=== PATIENT | male | born 1975 | race Caucasian/White ===

== ENCOUNTER 2016-02-29 14:23 | Emergency (ER) | payer SELFPAY ==
[2016-02-29 14:30] VITALS: RESP 18
[2016-02-29] MEDS ORDERED: NAPROXEN 250 MG TAB PO STA (14:41)
--- NOTE | 2016-02-29 14:46 | ED ---
Fall HPI - General Chief Complaint: Fall Stated Complaint: Fall. Neck Pain Time Seen by Provider: 02/29/16 14:33 Source: patient Mode of arrival: ambulatory - History of Present Illness Initial Comments: This is a 40-year-old male who presents emergency department because he fell yesterday. The patient states he was doing his laundry and trying to get into his house when he slipped on some ice and fell onto his right side. He states that he injured his right hip and hit his head on the ground. He states he did not lose consciousness. He is able to get up and ambulate afterwards. He went to sleep and when he woke up this morning he had some neck discomfort bilaterally and laterally. He states that it's worse with moving his neck. He denies any numbness, tingling, or weakness in his extremities. He denies any headache, nausea, vomiting, or visual changes. No blood thinners. He also admits to some lateral right hip pain that is worse with palpation and hip flexion. Again no weakness or numbness in the distal extremities. He called his employer today who advised him to the emergency department and is here for evaluation and work note. - Related Data Home Medications Medication Instructions Recorded Confirmed ALPRAZolam [Xanax] 1 mg PO Q8H PRN 02/29/16 02/29/16 HYDROcodone/APAP 5-325MG [[place] 1 tab PO Q8H PRN 02/29/16 02/29/16 5-325] Previous Rx's Medication Instructions Recorded Methocarbamol [Robaxin] 1,000 mg PO TID #20 tab 02/29/16 Naproxen [Naprosyn] 500 mg PO Q12HR #30 tab 02/29/16 Allergies Allergy/AdvReac Type Severity Reaction Status Date / Time No Known Allergies Allergy Verified 02/29/16 14:36 Review of Systems ROS Statement: Those systems with pertinent positive or pertinent negative responses have been documented in the HPI. ROS Other: All systems not noted in ROS Statement are negative. Past Medical History Past Medical History: No Reported History History of Any Multi-Drug Resistant Organisms: None Reported Past Surgical History: No Surgical Hx Reported Past Psychological History: No Psychological Hx Reported Smoking Status: Current every day smoker Past Alcohol Use History: None Reported Past Drug Use History: None Reported General Exam - General Exam Comments Initial Comments: Constitutional: Awake alert Appears comfortable Head: Normocephalic atraumatic Eyes: no conjunctival injection No scleral icterus EOMI Neck: No JVD Supple, there is bilateral muscular tenderness in the lower neck. No spinous process tenderness. Heart: Regular rate rhythm normal S1-S2 no murmurs Lungs: Clear to auscultation bilaterally No wheezing No rales Abdomen: Soft nondistended nontender Extremities: Non edematous DP pulses intact Radial pulses intact, there is tenderness to palpation over the greater tuberosity of the right hip. No ecchymosis Neuro: A&Ox3 cranial nerves II through XII are grossly intact, 5 out of 5 strength in upper and lower extremities bilaterally, sensation intact to light touch in all extremities. No ataxia. Psych: Appropriate mood and affect Limitations: no limitations Course Vital Signs 02/29/16 14:27 Temperature 97.3 F L Pulse Rate 97 Respiratory 18 Rate Blood Pressure 115/73 O2 Sat by Pulse 99 Oximetry Medical Decision Making - Medical Decision Making This is a 40-year-old male who presents emergency Department after a fall yesterday. The patient had x-rays of his neck and hip which were unremarkable for fracture. The patient likely suffered a neck strain and hip contusion. He can be sent home on Naprosyn and Robaxin as needed. I'm going to give the next couple of days off work. The patient has no indication for CT scanning of his brain including no anticoagulation. Patient did not lose consciousness. He has no headache. No nausea or vomiting. At this time I told to keep an eye symptoms if he has any worsening or changing symptoms she can return emergency Department. All questions were answered. Disposition Clinical Impression: Neck strain, Contusion, hip Disposition: HOME SELF-CARE Condition: Stable Instructions: Cervical Strain (ED) Prescriptions: Methocarbamol [Robaxin] 1,000 mg PO TID #20 tab Naproxen [Naprosyn] 500 mg PO Q12HR #30 tab Referrals: Malcom Fritz MD [Primary Care Provider] - 1-2 days
--- NOTE | 2016-02-29 15:46 | XR ---
EXAMINATION TYPE: XR Hip RT and AP Pelvis DATE OF EXAM: 02/29/2016 3:28 PM COMPARISON: NONE HISTORY: Trauma and pain TECHNIQUE: A single AP view of the pelvis is obtained. Two views of the right hip are obtained. FINDINGS: There is no acute fracture/dislocation evident in the pelvis. The hip and sacroiliac join ts appear symmetric and unremarkable. The overlying soft tissue appears unremarkable. Two views of right hip show no acute fracture or dislocation. No focal lytic or sclerotic lesion see n in the proximal right femur. The overlying soft tissue is unremarkable. IMPRESSION: There is no acute fracture or dislocation in the pelvis or right hip.
--- NOTE | 2016-02-29 15:56 | XR ---
Cervical spine HISTORY: Trauma and pain 5 views of the cervical spine and 6 images No comparisons There is overlying artifact. Cervical vertebral bodies show preserved height, alignment, and bone min eralization. Disc spaces are maintained. Prevertebral soft tissues are normal. No significant foramin al encroachment. IMPRESSION: Artifact obscures C2. No acute osseous abnormality is evident.
[2016-02-29 16:16] VITALS: BP 137/87; PULSE 68; TEMP 98.7
== END 2016-02-29 16:15 | disposition home or self-care (01) ==
LOC: EC 14:23
DX: S16.1XXA Strain of muscle, fascia and tendon at neck level, initial encounter (principal); S70.01XA Contusion of right hip, initial encounter; F17.200 Nicotine dependence, unspecified, uncomplicated; W00.0XXA Fall on same level due to ice and snow, initial encounter; Y92.009 Unspecified place in unspecified non-institutional (private) residence as the place of occurrence of the external cause
CPT/HCPCS: 72050; 73502; 99284

== ENCOUNTER 2018-08-29 10:10 | Emergency (ER) | payer OTHER ==
[2018-08-29 10:34] VITALS: TEMP 98
--- NOTE | 2018-08-29 11:25 | ED ---
SOB HPI - General Chief Complaint: Shortness of Breath Stated Complaint: cough, shortness of breath Time Seen by Provider: 08/29/18 10:38 Source: patient Mode of arrival: ambulatory Limitations: no limitations - History of Present Illness Initial Comments: 43-year-old male presenting for exposure fumes. 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 She states that she was not as careful as he should've been. Patient states that that night he developed a cough he felt like he had bronchitis or pneumonia. Patient states he felt like he had a low-grade fever. Patient states the symptoms have been getting better however he still feels tight when he takes a deep breath. Denies any chest pain. Denies any arm pain and neck or jaw pain. Patient denies history of diabetes or hypertension. Patient denies any premature coronary artery disease with family. She denies hemoptysis, leg swelling he denies recent surgery history cancer he denies any history of DVT or pulmonary embolism denies recent fractures. Denies any exogenous hormone use. Patient states he feels like it is as long as he can extend them. Patient was concerned that he developed a pneumonia or bronchitis from exposure presents to emergency department for evaluation. Upon arrival patient appears well signs of acute distress vital signs within acceptable limits. Patient respirations nonlabored. MD Complaint: shortness of breath - Related Data Home Medications Medication Instructions Recorded Confirmed ALPRAZolam [Xanax] 1 mg PO Q8H PRN 02/29/16 02/29/16 HYDROcodone/APAP 5-325MG [[place] 1 tab PO Q8H PRN 02/29/16 02/29/16 5-325] Previous Rx's Medication Instructions Recorded Methocarbamol [Robaxin] 1,000 mg PO TID #20 tab 02/29/16 Naproxen [Naprosyn] 500 mg PO Q12HR #30 tab 02/29/16 Allergies Allergy/AdvReac Type Severity Reaction Status Date / Time No Known Allergies Allergy Verified 08/29/18 10:34 Review of Systems ROS Statement: Those systems with pertinent positive or pertinent negative responses have been documented in the HPI. ROS Other: All systems not noted in ROS Statement are negative. Past Medical History Past Medical History: No Reported History History of Any Multi-Drug Resistant Organisms: None Reported Past Surgical History: Hernia Repair Past Psychological History: No Psychological Hx Reported Smoking Status: Current every day smoker Past Alcohol Use History: None Reported Past Drug Use History: None Reported General Exam - General Exam Comments Initial Comments: General: The patient is awake and alert, in no distress, and does not appear acutely ill. Eye: Pupils are equal, round and reactive to light, extra-ocular movements are intact. No nystagmus. There is normal conjunctiva bilaterally. No signs of icterus. Ears, nose, mouth and throat: There are moist mucous membranes and no oral lesions. Neck: The neck is supple, there is no tenderness or JVD. Cardiovascular: There is a regular rate and rhythm. No murmur, rub or gallop is appreciated. Respiratory: Lungs are clear to auscultation, respirations are non-labored, breath sounds are equal. No wheezes, stridor, rales, or rhonchi. Gastrointestinal: Soft, non-distended, non-tender abdomen without masses or organomegaly noted. There is no rebound or guarding present. No CVA tenderness. Bowel sounds are unremarkable. Musculoskeletal: Normal ROM, no tenderness. Strength 5/5. Sensation intact. Pulses equal bilaterally 2+. Neurological: A&O x 3. CN II-XII intact, There are no obvious motor or sensory deficits. Coordination appears grossly intact. Speech is normal. Skin: Skin is warm and dry and no rashes or lesions are noted. Psychiatric: Cooperative, appropriate mood & affect, normal judgment. Limitations: no limitations Course Vital Signs 08/29/18 08/29/18 10:28 12:32 Temperature 98.0 F Pulse Rate 96 73 Respiratory 18 16 Rate Blood Pressure 117/79 112/84 O2 Sat by Pulse 97 100 Oximetry Medical Decision Making - Medical Decision Making Well-appearing 43-year-old male presenting for cough exposure to fumes. Patient has normal lung examination no signs of respiratory distress vital signs within acceptable limits. PERC (-). CXR (-) EKG no acute findings. Troponin (-). Pt denies chest pain. At this time I feel patient is stable for discharge there is no evidence of pneumonitis. Patient denies any chest pain patient states he did feel like he had a low-grade fever differential diagnosis includes viral syndrome. Patient states he came to get a work note so that he can return to work. Patient provided no patient was discharged appearing well to discuss the case attending provider Dr. Parrish. - Lab Data Result diagrams: 08/29/18 11:38 08/29/18 11:38 Lab Results 08/29/18 08/29/18 08/29/18 Range/Units 11:38 11:38 11:38 WBC 13.6 H (3.8-10.6) k/uL RBC 4.48 (4.30-5.90) m/uL Hgb 14.9 (13.0-17.5) gm/dL Hct 44.8 (39.0-53.0) % MCV 100.1 H (80.0-100.0) fL MCH 33.3 (25.0-35.0) pg MCHC 33.3 (31.0-37.0) g/dL RDW 13.0 (11.5-15.5) % Plt Count 315 (150-450) k/uL Neutrophils % 75 % Lymphocytes % 18 % Monocytes % 4 % Eosinophils % 2 % Basophils % 1 % Neutrophils # 10.2 H (1.3-7.7) k/uL Lymphocytes # 2.4 (1.0-4.8) k/uL Monocytes # 0.6 (0-1.0) k/uL Eosinophils # 0.2 (0-0.7) k/uL Basophils # 0.1 (0-0.2) k/uL Sodium 140 (137-145) mmol/L Potassium 4.2 (3.5-5.1) mmol/L Chloride 104 (98-107) mmol/L Carbon Dioxide 27 (22-30) mmol/L Anion Gap 9 mmol/L BUN 16 (9-20) mg/dL Creatinine 1.04 (0.66-1.25) mg/dL Est GFR (CKD-EPI)AfAm >90 (>60 ml/min/1.73 sqM) Est GFR (CKD-EPI)NonAf 88 (>60 ml/min/1.73 sqM) Glucose 99 (74-99) mg/dL Calcium 9.6 (8.4-10.2) mg/dL Total Bilirubin 0.9 (0.2-1.3) mg/dL AST 16 L (17-59) U/L ALT 18 L (21-72) U/L Alkaline Phosphatase 47 (38-126) U/L Troponin I <0.012 (0.000-0.034) ng/mL Total Protein 7.0 (6.3-8.2) g/dL Albumin 4.7 (3.5-5.0) g/dL A 12-lead EKG was performed and shows the following: Rate is 66bpm, and rhythm is normal sinus. There are normal QRS complexes and normal R-wave progression. ST segments have no elevation or depression, and IN segments appear normal. The IN interval 162 ms QRS duration 92 ms, QT/QTC 406/425 ms 08/29/18 19:10 Disposition Clinical Impression: Cough, Leukocytosis, Exposure to industrial fumes Disposition: HOME SELF-CARE Condition: Good Instructions (If sedation given, give patient instructions): Acute Cough (ED) Additional Instructions: Please use medication as discussed. Please follow-up with family doctor in the next 2 days. PATIENT MAY RETURN TO WORK WITH PROPER PROTECTIVE GEAR. Please return to emergency room if the symptoms increase or worsen or for any other concerns. Is patient prescribed a controlled substance at d/c from ED?: No Referrals: Malcom Fritz MD [Primary Care Provider] - 1-2 days Time of Disposition: 12:35
[2018-08-29 11:47] LABS: Basophils # (A) 0.1 k/uL (0-0.2); Basophils % (A) 1 %; Eosinophils # (A) 0.2 k/uL (0-0.7); Eosinophils % (A) 2 %; HCT 44.8 % (39.0-53.0); HGB 14.9 gm/dL (13.0-17.5); Lymphocytes # (A) 2.4 k/uL (1.0-4.8); Lymphocytes % (A) 18 %; MCH 33.3 pg (25.0-35.0); MCHC 33.3 g/dL (31.0-37.0); MCV 100.1 fL (80.0-100.0); Mean Platelet Volume 7.3; Monocytes # (A) 0.6 k/uL (0-1.0); Monocytes % (A) 4 %; Neutrophils # (A) 10.2 k/uL (1.3-7.7); Neutrophils % (A) 75 %; Platelet Count 315 k/uL (150-450); RBC 4.48 m/uL (4.30-5.90); WBC 13.6 k/uL (3.8-10.6)
--- NOTE | 2018-08-29 11:47 | XR ---
EXAMINATION TYPE: XR chest 2V DATE OF EXAM: 08/29/2018 COMPARISON: NONE HISTORY: Chest pain for one week. TECHNIQUE: Frontal and lateral views of the chest are obtained. FINDINGS: There is no focal air space opacity, pleural effusion, or pneumothorax seen. The cardiac silhouette size is within normal limits. The osseous structures are intact. IMPRESSION: No acute process.
[2018-08-29 11:58] LABS: ALT 18 U/L (21-72); AST 16 U/L (17-59); African American GFR (CKD) >90 (>60 ml/min/1.73 sqM); Albumin 4.7 g/dL (3.5-5.0); Alkaline Phosphatase 47 U/L (38-126); Anion Gap 9 mmol/L; Blood Urea Nitrogen 16 mg/dL (9-20); Calcium 9.6 mg/dL (8.4-10.2); Carbon Dioxide 27 mmol/L (22-30); Chloride 104 mmol/L (98-107); Glucose 99 mg/dL (74-99); Potassium 4.2 mmol/L (3.5-5.1); Sodium 140 mmol/L (137-145); Total Bilirubin 0.9 mg/dL (0.2-1.3)
[2018-08-29 12:34] VITALS: BP 112/84; PULSE 73; RESP 16
== END 2018-08-29 13:00 | disposition home or self-care (01) ==
LOC: EC 10:10
DX: D72.829 Elevated white blood cell count, unspecified (principal); R05 Cough; Z57.9 Occupational exposure to unspecified risk factor; R06.02 Shortness of breath; F17.200 Nicotine dependence, unspecified, uncomplicated
CPT/HCPCS: 36415; 71046; 80053; 84484; 85025; 93005; 99285

== ENCOUNTER 2019-02-22 11:44 | Emergency (ER) | payer OTHER ==
[2019-02-22] MEDS ORDERED: IPRATROPIUM-ALBUTEROL 3 ML NEB INHALATION STA (12:16)
[2019-02-22] MEDS ORDERED: SODIUM CHLORIDE 0.9% 1,000 ML IV STA (12:20)
[2019-02-22] MEDS ORDERED: SODIUM CHLORIDE 0.9% 500 ML 500 ML IV STA (12:20)
--- NOTE | 2019-02-22 12:27 | ED ---
URI HPI - General Chief Complaint: Upper Respiratory Infection Stated Complaint: Chest cold Time Seen by Provider: 02/22/19 12:02 Source: patient, RN notes reviewed Mode of arrival: ambulatory Limitations: no limitations - History of Present Illness Initial Comments: This is a 43-year-old male who has a history of smoking but no known history of asthma COPD emphysema who presents with complaints of 4 days of rhinorrhea cough chest tightness shortness of breath cough with minimal phlegm also some wheezing also some headache some chills no fevers or sweats reported no overt anorexia. No nausea vomiting diarrhea no other modifying factors at this time MD Complaint: cough, sore throat, rhinorrhea, other - Related Data Home Medications Medication Instructions Recorded Confirmed ALPRAZolam [Xanax] 1 mg PO Q8H PRN 02/29/16 02/22/19 D-Methorphan/PE/Acetaminophen 2 cap PO Q12HR PRN 02/22/19 02/22/19 [[place] Dayquil Liquicaps] HYDROcodone/APAP 5-325MG [[place] 1 tab PO TID PRN 02/22/19 02/22/19 5-325] Previous Rx's Medication Instructions Recorded Albuterol Inhaler [Ventolin Hfa 2 puff INHALATION Q6HR PRN #1 02/22/19 Inhaler] inhaler Magnesium 200 mg PO DAILY #10 tablet 02/22/19 Oseltamivir [Tamiflu] 75 mg PO Q12HR #10 cap 02/22/19 methylPREDNISolone [Medrol Dose 4 mg PO DIRECTED #1 pack 02/22/19 Pack] Allergies Allergy/AdvReac Type Severity Reaction Status Date / Time No Known Allergies Allergy Verified 02/22/19 12:17 Review of Systems ROS Statement: Those systems with pertinent positive or pertinent negative responses have been documented in the HPI. ROS Other: All systems not noted in ROS Statement are negative. Past Medical History Past Medical History: No Reported History History of Any Multi-Drug Resistant Organisms: None Reported Past Surgical History: Hernia Repair Past Psychological History: No Psychological Hx Reported Smoking Status: Current every day smoker Past Alcohol Use History: None Reported Past Drug Use History: None Reported General Exam - General Exam Comments Initial Comments: This is a well-developed well-nourished awake alert oriented times 3 male Limitations: no limitations General appearance: alert, anxious Head exam: Present: atraumatic, normocephalic, normal inspection Eye exam: Present: normal appearance, PERRL, EOMI. Absent: scleral icterus, conjunctival injection, periorbital swelling ENT exam: Present: other (Boggy nasal mucosa with some clear drainage noted.) Neck exam: Present: normal inspection. Absent: tenderness, meningismus, lymphadenopathy Respiratory exam: Present: decreased breath sounds. Absent: respiratory distres s, wheezes, rales, rhonchi, stridor Cardiovascular Exam: Present: normal rhythm, tachycardia, normal heart sounds. Absent: systolic murmur, diastolic murmur, rubs, gallop, clicks GI/Abdominal exam: Present: soft, normal bowel sounds. Absent: distended, tenderness, guarding, rebound, rigid Extremities exam: Present: normal inspection, full ROM, normal capillary refill. Absent: tenderness, pedal edema, joint swelling, calf tenderness Back exam: Present: normal inspection Neurological exam: Present: alert, oriented X3, CN II-XII intact Psychiatric exam: Present: normal affect, normal mood Skin exam: Present: warm, dry, intact, normal color. Absent: rash Course Vital Signs 02/22/19 02/22/19 02/22/19 11:49 12:10 12:12 Temperature 101.2 F H Pulse Rate 121 H 113 H Respiratory 22 20 20 Rate Blood Pressure 123/73 O2 Sat by Pulse 94 L 93 L Oximetry 02/22/19 02/22/19 02/22/19 13:34 13:44 14:00 Temperature 100.5 F H Pulse Rate 105 H 112 H Respiratory 20 18 Rate Blood Pressure 118/65 O2 Sat by Pulse 95 Oximetry 02/22/19 14:01 Temperature Pulse Rate 109 H Respiratory Rate Blood Pressure O2 Sat by Pulse Oximetry - Reevaluation(s) Reevaluation #1: 02/22/19 15:27 Initial reevaluation the patient after initial treatment revealed some improv ement in his breathing. He did improve as far as his heart rate because of IV fluids Procedures - Smoking Cessation Time Spent Discussing Smoking Cessation w/Patient (Minutes): 3 Patient Acknowledges Need for Cessation: Yes Medical Decision Making - Medical Decision Making Multiple reevaluation patient revealed that he was improved his breathing is muc h improved he does have influenza type A + hypomagnesemia. He was given IV magnesium and does feel much improved at this time he will be discharged on appropriate medication. Patient does agree that he will stop smoking. - Lab Data Result diagrams: 02/22/19 12:46 02/22/19 12:46 Lab Results 02/22/19 02/22/19 02/22/19 Range/Units 12:24 12:46 12:46 WBC 15.1 H (3.8-10.6) k/uL RBC 4.59 (4.30-5.90) m/uL Hgb 15.6 (13.0-17.5) gm/dL Hct 46.1 (39.0-53.0) % MCV 100.4 H (80.0-100.0) fL MCH 34.1 (25.0-35.0) pg MCHC 34.0 (31.0-37.0) g/dL RDW 12.4 (11.5-15.5) % Plt Count 180 (150-450) k/uL Neutrophils % (Manual) 90 % Lymphocytes % (Manual) 6 % Monocytes % (Manual) 4 % Neutrophils # (Manual) 13.59 H (1.3-7.7) k/uL Lymphocytes # (Manual) 0.91 L (1.0-4.8) k/uL Monocytes # (Manual) 0.60 (0-1.0) k/uL Nucleated RBCs 0 (0-0) /100 WBC Manual Slide Review Performed RBC Morphology Normal Sodium 127 L (137-145) mmol/L Potassium 3.7 (3.5-5.1) mmol/L Chloride 94 L (98-107) mmol/L Carbon Dioxide 26 (22-30) mmol/L Anion Gap 7 mmol/L BUN 15 (9-20) mg/dL Creatinine 0.95 (0.66-1.25) mg/dL Est GFR (CKD-EPI)AfAm >90 (>60 ml/min/1.73 sqM) Est GFR (CKD-EPI)NonAf >90 (>60 ml/min/1.73 sqM) Glucose 107 H (74-99) mg/dL Calcium 8.0 L (8.4-10.2) mg/dL Magnesium 1.3 L (1.6-2.3) mg/dL Total Bilirubin 0.6 (0.2-1.3) mg/dL AST 30 (17-59) U/L ALT 26 (4-49) U/L Alkaline Phosphatase 38 (38-126) U/L Creatine Kinase 210 H (55-170) U/L Total Protein 5.9 L (6.3-8.2) g/dL Albumin 3.7 (3.5-5.0) g/dL Influenza Type A RNA Detected H (Not Detectd) Influenza Type B (PCR) Not Detected (Not Detectd) - EKG Data -: EKG Interpreted by Me EKG shows normal: sinus rhythm (Sinus tachycardia rate of 101. Interval 142 QRS duration 92 QT since QTC 314/407. This is a otherwise normal EKG) - Radiology Data Radiology results: report reviewed (I did review the imaging and report no acute findings.), image reviewed Disposition Clinical Impression: Influenza, Asthmatic bronchitis, Febrile illness, acute, Dehydration, Hypomagnesemia, Smoker Disposition: HOME SELF-CARE Condition: Good Instructions (If sedation given, give patient instructions): Influenza (ED), Br onchospasm (ED), Acute Bronchitis (ED), How Your Lungs Work (ED), How to Stop Smoking (ED) Additional Instructions: Medication prescription sent to your preferred at [facility] Prescriptions: Magnesium 200 mg PO DAILY #10 tablet methylPREDNISolone [Medrol Dose Pack] 4 mg PO DIRECTED #1 pack Oseltamivir [Tamiflu] 75 mg PO Q12HR #10 cap Albuterol Inhaler [Ventolin Hfa Inhaler] 2 puff INHALATION Q6HR PRN #1 inhaler PRN Reason: Dyspnea Is patient prescribed a controlled substance at d/c from ED?: No Referrals: Malcom Fritz MD [Primary Care Provider] - 1-2 days
[2019-02-22 13:11] LABS: HCT 46.1 % (39.0-53.0); HGB 15.6 gm/dL (13.0-17.5); MCH 34.1 pg (25.0-35.0); MCV 100.4 fL (80.0-100.0); Platelet Count 180 k/uL (150-450); RBC 4.59 m/uL (4.30-5.90); RDW 12.4 % (11.5-15.5); WBC 15.1 k/uL (3.8-10.6)
[2019-02-22 13:15] LABS: ALT 26 U/L (4-49); AST 30 U/L (17-59); African American GFR (CKD) >90 (>60 ml/min/1.73 sqM); Albumin 3.7 g/dL (3.5-5.0); Alkaline Phosphatase 38 U/L (38-126); Anion Gap 7 mmol/L; Blood Urea Nitrogen 15 mg/dL (9-20); Carbon Dioxide 26 mmol/L (22-30); Chloride 94 mmol/L (98-107); Creatine Kinase 210 U/L (55-170); Glucose 107 mg/dL (74-99); Magnesium 1.3 mg/dL (1.6-2.3); Non-African American GFR(CKD) >90 (>60 ml/min/1.73 sqM); Potassium 3.7 mmol/L (3.5-5.1); Sodium 127 mmol/L (137-145); Total Bilirubin 0.6 mg/dL (0.2-1.3); Total Protein 5.9 g/dL (6.3-8.2)
[2019-02-22 13:27] LABS: Lymphocytes # (M) 0.91 k/uL (1.0-4.8); Neutrophils # (M) 13.59 k/uL (1.3-7.7); Neutrophils % (M) 90 %; Nucleated Red Blood Cells 0 /100 WBC (0-0); Total Cells Counted 100
--- NOTE | 2019-02-22 13:31 | XR ---
EXAMINATION TYPE: XR chest 2V DATE OF EXAM: 02/22/2019 HISTORY: Cough with phlegm production. REFERENCE: Previous study dated 08/29/1989. FINDINGS: The lungs are clear. Pleural spaces are clear. The heart is not enlarged. IMPRESSION: NO ACTIVE INTRATHORACIC DISEASE.
[2019-02-22] MEDS ORDERED: MAGNESIUM SULFATE-D5W PMX 1 GM in DEXTROSE/WATER 1 100ML.BAG IVPB ONE (13:47)
[2019-02-22] MEDS ORDERED: OSELTAMIVIR 75 MG CAP PO STA (14:06)
[2019-02-22 14:24] VITALS: RESP 18
[2019-02-22 15:50] VITALS: BP 103/58; PULSE 102; TEMP 100
== END 2019-02-22 15:45 | disposition home or self-care (01) ==
LOC: EC 11:44
DX: J11.1 Influenza due to unidentified influenza virus with other respiratory manifestations (principal); J45.909 Unspecified asthma, uncomplicated; E86.0 Dehydration; E83.42 Hypomagnesemia; F17.200 Nicotine dependence, unspecified, uncomplicated; Z71.6 Tobacco abuse counseling
CPT/HCPCS: 36415; 94640; 93005; 80053; 82550; 83735; 85025; 87040; 87502; 71046; 99284; 96365; 96361 ×2; J3475

== ENCOUNTER 2023-01-24 09:16 | Emergency (ER) | payer SELFPAY ==
[2023-01-24] MEDS ORDERED: IPRATROPIUM-ALBUTEROL 3 ML NEB INHALATION STA (09:30)
--- NOTE | 2023-01-24 09:36 | ED ---
SOB HPI - General Chief Complaint: Shortness of Breath Stated Complaint: sob Time Seen by Provider: 01/24/23 09:19 Source: patient, RN notes reviewed Mode of arrival: ambulatory Limitations: no limitations - History of Present Illness Initial Comments: This is a 47-year-old male who presents to the emergency department for chest pain or shortness of breath. He notes inhaling toxic fumes at work for at least an hour last week, and is unsure if symptoms are related. Afterwards he developed a sore throat and his voice was hoarse. Symptoms then started to move down into the chest. When he woke up this morning he was very short of breath and had centralized chest pressure. Terril like he could not catch his breath or take a deep breath. He is concerned that this may be related to something else would like to rule out other causes. He is a smoker, which also concerns him. MD Complaint: shortness of breath, chest pain - Related Data Home Medications Medication Instructions Recorded Confirmed ALPRAZolam [Xanax] 1 mg PO Q8H PRN 02/29/16 02/22/19 D-Methorphan/PE/Acetaminophen 2 cap PO Q12HR PRN 02/22/19 02/22/19 [Vicks Dayquil Liquicaps] HYDROcodone/APAP 5-325MG [[place] 1 tab PO TID PRN 02/22/19 02/22/19 5-325] Previous Rx's Medication Instructions Recorded Albuterol Inhaler [Ventolin Hfa 2 puff INHALATION Q6HR PRN #1 02/22/19 Inhaler] inhaler Magnesium 200 mg PO DAILY #10 tablet 02/22/19 Oseltamivir [Tamiflu] 75 mg PO Q12HR #10 cap 02/22/19 methylPREDNISolone [Medrol Dose 4 mg PO DIRECTED #1 pack 02/22/19 Pack] Albuterol Sulfate [Albuterol 1 puff PO Q4-6H PRN #8.5 gm 01/24/23 Sulfate Hfa] Allergies Allergy/AdvReac Type Severity Reaction Status Date / Time No Known Allergies Allergy Verified 01/24/23 09:20 Review of Systems ROS Statement: Those systems with pertinent positive or pertinent negative responses have been documented in the HPI. ROS Other: All systems not noted in ROS Statement are negative. Past Medical History Past Medical History: No Reported History History of Any Multi-Drug Resistant Organisms: None Reported Past Surgical History: Hernia Repair Past Psychological History: No Psychological Hx Reported Smoking Status: Current every day smoker Past Alcohol Use History: None Reported Past Drug Use History: Marijuana General Exam Limitations: no limitations General appearance: alert, in no apparent distress Head exam: Present: atraumatic, normocephalic, normal inspection Respiratory exam: Present: normal lung sounds bilaterally. Absent: respiratory distress, wheezes, rales, rhonchi, stridor Cardiovascular Exam: Present: regular rate, normal rhythm, normal heart sounds. Absent: systolic murmur, diastolic murmur, rubs, gallop, clicks Neurological exam: Present: alert, oriented X3, CN II-XII intact Psychiatric exam: Present: normal affect, normal mood Skin exam: Present: warm, dry, intact, normal color. Absent: rash Course Vital Signs 01/24/23 01/24/23 01/24/23 09:18 11:18 11:27 Temperature 98.8 F Pulse Rate 109 H 102 H 100 Respiratory 20 16 18 Rate Blood Pressure 136/78 O2 Sat by Pulse 99 Oximetry 01/24/23 12:40 Temperature 98.0 F Pulse Rate 76 Respiratory 18 Rate Blood Pressure 134/80 O2 Sat by Pulse 97 Oximetry Medical Decision Making - Medical Decision Making This is a 47-year-old male who presents to the emergency department for chest pain and shortness of breath. Was pt. sent in by a medical professional or institution? @ -No Did you speak to anyone other than the patient for history? @ -No Did you review nursing and triage notes? @ -Yes, and I agree, it is accurate with regards to the patient's symptoms. Were old charts reviewed? @ -No Differential Diagnosis? @ -Differential Chest Pain: Stable Angina, Unstable Angina, STEMI, NSTEMI Aortic Dissection, Pneumothorax, Musculoskeletal, Esophageal Spasm GERD, Cholecystitis, Pancreatitis, Zoster, this is not meant to be an all-inclusive list. -Differential Dyspnea: Coronary syndrome, arrhythmia, tamponade, asthma, COPD, pulmonary embolism, pneumonia, pneumothorax, pulmonary effusion, anaphylaxis, diabetic ketoacidosis, flailed chest, pulmonary contusion, diaphragmatic rupture, anemia, neuromus cular, this is not meant to be an all-inclusive list. EKG interpreted by me (3pts min.)? @ -EKG interpreted by me demonstrating the following: Sinus rhythm. Yared tricular rate 95 beats per minute, OK interval 139 ms, QRS duration 93 ms, QTC 381 ms. X-rays interpreted by me (1pt min.)? @ -Chest x-ray obtained, my interpretation identifies no localized consolidations or infiltrates. CT interpreted by me (1pt min.)? @ -Not obtained U/S interpreted by me (1pt. min.)? @ -Not obtained What testing was considered but not performed? (CT, X-rays, U/S, labs)? Why? @ -None What meds were considered but not given? Why? @ -None Did you discuss the management of the patient with other professionals? @ -No Did you reconcile home meds? @ -No Was smoking cessation discussed for >3mins.? @ -I discussed smoking cessation for greater than 3 minutes. The risk of sm oking were discussed with the patient including but not limited to risks of cancer, stroke, coronary artery disease and COPD. Also discussed with patient were multiple methods of quitting smoking. Lastly we discussed the financial cost of smoking. Was critical care preformed (if so, how long)? @ -No Were there social determinants of health that impacted care today? How? (Homelessness, low income, unemployed, alcoholism, drug addiction, tr ansportation, low edu. Level, literacy, decrease access to med. care, prison, rehab)? @ -No Was there de-escalation of care discussed even if they declined? (Discuss DNR or withdrawal of care, Hospice)? @ -No What co-morbidities impacted this encounter? (DM, HTN, Smoking, COPD, CAD, Cancer, CVA, Hep., AIDS, mental health diagnosis, sleep apnea, morbid obesity)? @ -Smoking Was patient admitted / discharged? @ -Discussed with the patient that it is possible that symptoms are related to the fume inhalation, however given that they are progressively worsening, and he woke up with acute shortness of breath and chest pressure, we should proceed with further evaluation to rule out other cardiac process. Patient is in agreement with this. Lab work obtained revealing mild leukocytosis and an initially indeterminate troponin. He was also found to have hyperkalemia with slight hemolysis. Chest x-ray reveals no acute findings. Covid, influenza, and RSV testing were negative. Given the acute onset of his symptoms and indeterminate troponin, I did recommend repeating a second troponin at the 3 hour osvaldo. However, patient was in a hurry and had to roll picker his son. This was thus repeated sooner than it otherwise would have been. This did increase to 0.034, 0.001 point away from being elevated. Discussed with the patient that a third troponin should be obtained or he should be admitted for observation related to the chest pain due to the possibility of an NSTEMI based on the troponins. However, the patient was insistent on picking up his son and sub sequently signed out AMA. He was strongly encouraged to return after picking up his son for a repeat troponin or admission for chest pain observation depending on the recommendations of the ED provider at that time. He was given a duoneb breathing treatment and I prescribed him with an albuterol inhaler prior to him leaving AMA. Undiagnosed new problem with uncertain prognosis? @ -None Drug Therapy requiring intensive monitoring for toxicity (Heparin, Nitro, Insulin, Cardizem)? @ -None Were any procedures done? @ -None Diagnosis/symptom? @ -Chest pain, dyspnea Acute, or Chronic, or Acute on Chronic? @ -Acute Uncomplicated (without systemic symptoms) or Complicated (systemic symptoms)? @ -Uncomplicated Side effects of treatment? @ -None Exacerbation, Progression, or Severe Exacerbation] @ -Not applicable Poses a threat to life or bodily function? @ -This will depend on the cause of the chest pain This case was discussed in detail with the attending ED physician, Dr. Negro. Presentation, findings, and treatment plan discussed in detail as well. - Lab Data Result diagrams: 01/24/23 10:02 01/24/23 10:02 Lab Results 01/24/23 01/24/23 01/24/23 Range/Units 10:02 10:02 10:02 WBC 12.8 H (3.8-10.6) k/uL RBC 5.10 (4.30-5.90) m/uL Hgb 17.5 (13.0-17.5) gm/dL Hct 54.0 H (39.0-53.0) % MCV 105.8 H (80.0-100.0) fL MCH 34.2 (25.0-35.0) pg MCHC 32.4 (31.0-37.0) g/dL RDW 13.4 (11.5-15.5) % Plt Count 320 (150-450) k/uL MPV 7.9 Neutrophils % 81 % Lymphocytes % 12 % Monocytes % 4 % Eosinophils % 2 % Basophils % 1 % Neutrophils # 10.3 H (1.3-7.7) k/uL Lymphocytes # 1.5 (1.0-4.8) k/uL Monocytes # 0.5 (0-1.0) k/uL Eosinophils # 0.2 (0-0.7) k/uL Basophils # 0.1 (0-0.2) k/uL Macrocytosis Moderate PT 10.7 (10.0-12.5) sec INR 1.0 (<1.2) APTT 25.2 (22.0-30.0) sec D-Dimer 0.29 (<0.60) mg/L FEU Sodium 137 (137-145) mmol/L Potassium 5.7 H (3.5-5.1) mmol/L Chloride 99 (98-107) mmol/L Carbon Dioxide 29 (22-30) mmol/L Anion Gap 9 mmol/L BUN 14 (9-20) mg/dL Creatinine 0.96 (0.66-1.25) mg/dL Est GFR (CKD-EPI)AfAm >90 (>60 ml/min/1.73 sqM) Est GFR (CKD-EPI)NonAf >90 (>60 ml/min/1.73 sqM) Glucose 103 H (74-99) mg/dL Plasma Lactic Acid Yared (0.7-2.0) mmol/L Calcium 9.3 (8.4-10.2) mg/dL Total Bilirubin 1.4 H (0.2-1.3) mg/dL AST 47 (17-59) U/L ALT 33 (4-49) U/L Alkaline Phosphatase 22 L (38-126) U/L Troponin I (0.000-0.034) ng/mL Total Protein 7.7 (6.3-8.2) g/dL Albumin 4.9 (3.5-5.0) g/dL Influenza Type A (PCR) (Not Detectd) Influenza Type B (PCR) (Not Detectd) RSV (PCR) (Not Detectd) SARS-CoV-2 (PCR) (Not Detectd) 12/01/24/23 01/24/23 Range/Units 10:02 10:02 10:02 WBC (3.8-10.6) k/uL RBC (4.30-5.90) m/uL Hgb (13.0-17.5) gm/dL Hct (39.0-53.0) % MCV (80.0-100.0) fL MCH (25.0-35.0) pg MCHC (31.0-37.0) g/dL RDW (11.5-15.5) % Plt Count (150-450) k/uL MPV Neutrophils % % Lymphocytes % % Monocytes % % Eosinophils % % Basophils % % Neutrophils # (1.3-7.7) k/uL Lymphocytes # (1.0-4.8) k/uL Monocytes # (0-1.0) k/uL Eosinophils # (0-0.7) k/uL Basophils # (0-0.2) k/uL Macrocytosis PT (10.0-12.5) sec INR (<1.2) APTT (22.0-30.0) sec D-Dimer (<0.60) mg/L FEU Sodium (137-145) mmol/L Potassium (3.5-5.1) mmol/L Chloride (98-107) mmol/L Carbon Dioxide (22-30) mmol/L Anion Gap mmol/L BUN (9-20) mg/dL Creatinine (0.66-1.25) mg/dL Est GFR (CKD-EPI)AfAm (>60 ml/min/1.73 sqM) Est GFR (CKD-EPI)NonAf (>60 ml/min/1.73 sqM) Glucose (74-99) mg/dL Plasma Lactic Acid Yared 1.2 (0.7-2.0) mmol/L Calcium (8.4-10.2) mg/dL Total Bilirubin (0.2-1.3) mg/dL AST (17-59) U/L ALT (4-49) U/L Alkaline Phosphatase (38-126) U/L Troponin I 0.025 (0.000-0.034) ng/mL Total Protein (6.3-8.2) g/dL Albumin (3.5-5.0) g/dL Influenza Type A (PCR) Not Detected (Not Detectd) Influenza Type B (PCR) Not Detected (Not Detectd) RSV (PCR) Not Detected (Not Detectd) SARS-CoV-2 (PCR) Not Detected (Not Detectd) 01/24/23 Range/Units 11:51 WBC (3.8-10.6) k/uL RBC (4.30-5.90) m/uL Hgb (13.0-17.5) gm/dL Hct (39.0-53.0) % MCV (80.0-100.0) fL MCH (25.0-35.0) pg MCHC (31.0-37.0) g/dL RDW (11.5-15.5) % Plt Count (150-450) k/uL MPV Neutrophils % % Lymphocytes % % Monocytes % % Eosinophils % % Basophils % % Neutrophils # (1.3-7.7) k/uL Lymphocytes # (1.0-4.8) k/uL Monocytes # (0-1.0) k/uL Eosinophils # (0-0.7) k/uL Basophils # (0-0.2) k/uL Macrocytosis PT (10.0-12.5) sec INR (<1.2) APTT (22.0-30.0) sec D-Dimer (<0.60) mg/L FEU Sodium (137-145) mmol/L Potassium (3.5-5.1) mmol/L Chloride (98-107) mmol/L Carbon Dioxide (22-30) mmol/L Anion Gap mmol/L BUN (9-20) mg/dL Creatinine (0.66-1.25) mg/dL Est GFR (CKD-EPI)AfAm (>60 ml/min/1.73 sqM) Est GFR (CKD-EPI)NonAf (>60 ml/min/1.73 sqM) Glucose (74-99) mg/dL Plasma Lactic Acid Yared (0.7-2.0) mmol/L Calcium (8.4-10.2) mg/dL Total Bilirubin (0.2-1.3) mg/dL AST (17-59) U/L ALT (4-49) U/L Alkaline Phosphatase (38-126) U/L Troponin I 0.034 (0.000-0.034) ng/mL Total Protein (6.3-8.2) g/dL Albumin (3.5-5.0) g/dL Influenza Type A (PCR) (Not Detectd) Influenza Type B (PCR) (Not Detectd) RSV (PCR) (Not Detectd) SARS-CoV-2 (PCR) (Not Detectd) - Radiology Data Radiology results: report reviewed, image reviewed Disposition Clinical Impression: Nicotine dependence, Chest pain, Dyspnea Disposition: LEFT AGAINST MEDICAL ADVICE Instructions (If sedation given, give patient instructions): Dyspnea (ED), Shortness of Breath (ED) Additional Instructions: Return to the emergency department as soon as possible. You can use the inhaler every 4-6 hours as needed for shortness of breath. Prescriptions: Albuterol Sulfate [Albuterol Sulfate Hfa] 1 puff PO Q4-6H PRN #8.5 gm PRN Reason: Shortness Of Breath Is patient prescribed a controlled substance at d/c from ED?: No Referrals: Malcom Fritz MD [Primary Care Provider] - 1-2 days
--- NOTE | 2023-01-24 10:05 | XR ---
EXAMINATION TYPE: XR chest 2V DATE OF EXAM: 01/24/2023 COMPARISON: 02/22/2019 HISTORY: Chest pain TECHNIQUE: Frontal and lateral views of the chest are obtained. FINDINGS: There is no focal air space opacity. No evidence for pneumothorax. No pleural effusion. The cardiac silhouette size is within normal limits. The osseous structures are grossly intact. IMPRESSION: 1. No acute cardiopulmonary process.
[2023-01-24 10:11] LABS: Basophils # (A) 0.1 k/uL (0-0.2); Basophils % (A) 1 %; Eosinophils # (A) 0.2 k/uL (0-0.7); Eosinophils % (A) 2 %; HGB 17.5 gm/dL (13.0-17.5); Lymphocytes # (A) 1.5 k/uL (1.0-4.8); Lymphocytes % (A) 12 %; MCH 34.2 pg (25.0-35.0); MCHC 32.4 g/dL (31.0-37.0); MCV 105.8 fL (80.0-100.0); Macrocytosis Moderate; Mean Platelet Volume 7.9; Monocytes # (A) 0.5 k/uL (0-1.0); Monocytes % (A) 4 %; Neutrophils # (A) 10.3 k/uL (1.3-7.7); Neutrophils % (A) 81 %; Platelet Count 320 k/uL (150-450); RDW 13.4 % (11.5-15.5); WBC 12.8 k/uL (3.8-10.6)
[2023-01-24 10:25] LABS: Partial Thromboplastin Time 25.2 sec (22.0-30.0); Prothrombin Time 10.7 sec (10.0-12.5)
[2023-01-24 10:32] LABS: ALT 33 U/L (4-49); AST 47 U/L (17-59); African American GFR (CKD) >90 (>60 ml/min/1.73 sqM); Albumin 4.9 g/dL (3.5-5.0); Alkaline Phosphatase 22 U/L (38-126); Anion Gap 9 mmol/L; Blood Urea Nitrogen 14 mg/dL (9-20); Calcium 9.3 mg/dL (8.4-10.2); Carbon Dioxide 29 mmol/L (22-30); Chloride 99 mmol/L (98-107); Glucose 103 mg/dL (74-99); Non-African American GFR(CKD) >90 (>60 ml/min/1.73 sqM); Sodium 137 mmol/L (137-145); Total Bilirubin 1.4 mg/dL (0.2-1.3); Total Protein 7.7 g/dL (6.3-8.2)
[2023-01-24 10:35] LABS: Potassium 5.7 mmol/L (3.5-5.1)
[2023-01-24 11:31] VITALS: RESP 18
[2023-01-24 12:48] VITALS: BP 134/80; PULSE 76; TEMP 98
== END 2023-01-24 12:42 | disposition left against medical advice (07) ==
LOC: EC 09:16
DX: R06.02 Shortness of breath (principal); R07.89 Other chest pain; E87.5 Hyperkalemia; D72.829 Elevated white blood cell count, unspecified; F17.200 Nicotine dependence, unspecified, uncomplicated; F12.90 Cannabis use, unspecified, uncomplicated; Z20.822 Contact with and (suspected) exposure to COVID-19; Z53.29 Procedure and treatment not carried out because of patient's decision for other reasons
CPT/HCPCS: 36415; 71046; 80053; 83605; 84484; 85025; 85379; 85610; 85730; 87636; 93005; 94640; 99285; 99406

== ENCOUNTER 2023-01-26 08:36 | Emergency (ER) | payer SELFPAY ==
[2023-01-26 08:52] VITALS: RESP 18
[2023-01-26 09:41] LABS: Basophils # (A) 0.1 k/uL (0-0.2); Basophils % (A) 1 %; Eosinophils # (A) 0.3 k/uL (0-0.7); Eosinophils % (A) 3 %; HGB 16.1 gm/dL (13.0-17.5); Lymphocytes # (A) 1.8 k/uL (1.0-4.8); Lymphocytes % (A) 17 %; MCH 34.5 pg (25.0-35.0); MCHC 32.8 g/dL (31.0-37.0); MCV 105.2 fL (80.0-100.0); Macrocytosis Slight; Mean Platelet Volume 7.4; Monocytes # (A) 0.5 k/uL (0-1.0); Monocytes % (A) 4 %; Neutrophils % (A) 74 %; Platelet Count 270 k/uL (150-450); RBC 4.66 m/uL (4.30-5.90); WBC 10.7 k/uL (3.8-10.6)
--- NOTE | 2023-01-26 09:46 | ED ---
General Adult HPI - General Chief complaint: Recheck/Abnormal Lab/Rx Stated complaint: Abnormal Labs Time Seen by Provider: 01/26/23 08:49 Source: patient, family, RN notes reviewed, old records reviewed Mode of arrival: ambulatory Limitations: no limitations - History of Present Illness Initial comments: Patient is a 47-year-old male who presents emergency Department for reevaluation. Patient left AGAINST MEDICAL ADVICE 2 days ago. Reportedly prese nted with what sounded like possibly bronchitis and some chest tightness. Patient had some indeterminate troponins at that time and it was recommended to him that he remained for further trending of the troponin. He did not want to stay and left AGAINST MEDICAL ADVICE. Returns today just for reevaluation to ensure nothing is changed, and to receive a work note. States he is overall feeling improved. No shortness of breath or chest pain. No nausea or vomiting. Has not had any symptoms since 2 days ago when he left. His job requested he come to reevaluated before returning to work. - Related Data Home Medications Medication Instructions Recorded Confirmed ALPRAZolam [Xanax] 1 mg PO Q8H PRN 02/29/16 02/22/19 D-Methorphan/PE/Acetaminophen 2 cap PO Q12HR PRN 02/22/19 02/22/19 [Vicks Dayquil Liquicaps] HYDROcodone/APAP 5-325MG [[place] 1 tab PO TID PRN 02/22/19 02/22/19 5-325] Previous Rx's Medication Instructions Recorded Albuterol Inhaler [Ventolin Hfa 2 puff INHALATION Q6HR PRN #1 02/22/19 Inhaler] inhaler Magnesium 200 mg PO DAILY #10 tablet 02/22/19 Oseltamivir [Tamiflu] 75 mg PO Q12HR #10 cap 02/22/19 methylPREDNISolone [Medrol Dose 4 mg PO DIRECTED #1 pack 02/22/19 Pack] Albuterol Sulfate [Albuterol 1 puff PO Q4-6H PRN #8.5 gm 01/24/23 Sulfate Hfa] Allergies Allergy/AdvReac Type Severity Reaction Status Date / Time No Known Allergies Allergy Verified 01/26/23 08:45 Review of Systems ROS Statement: Those systems with pertinent positive or pertinent negative responses have been documented in the HPI. Review of Systems: CONST: Denies fever EYES: Denies blurry vision ENT: Denies nasal congestion C/V: Denies Chest pain RESP: Denies shortness of breath GI: Denies abdominal pain : Denies dysuria SKIN: Denies rash. MSK: Denies joint pain. NEURO: Denies headache ROS Other: All systems not noted in ROS Statement are negative. Past Medical History Past Medical History: No Reported History History of Any Multi-Drug Resistant Organisms: None Reported Past Surgical History: Hernia Repair Past Psychological History: No Psychological Hx Reported Smoking Status: Current every day smoker Past Alcohol Use History: None Reported Past Drug Use History: Marijuana General Exam - General Exam Comments Initial Comments: General: Appears in no acute distress. HEAD: Normal with no signs of head trauma. EYES: PERRLA, EOMI, conjunctiva normal, no discharge. ENT: Hearing grossly intact, normal oropharynx. RESPIRATORY: Clear breath sounds bilaterally. No wheezes, rales, or rhonchi. C/V: Regular rate and rhythm. S1 and S2 auscultated, no edema, peripheral pulses 2+ and intact throughout ABD: Abd is soft, nontender, nondistended EXT: Normal range of motion, no obvious deformity SKIN: No rashes or lesions observed on exposed skin. NEURO: Alert and oriented x 4. Cranial nerves II-XII intact. No focal sensory or strength deficits. Limitations: no limitations Course Vital Signs 01/26/23 01/26/23 08:41 10:26 Temperature 97.4 F L 97.8 F Pulse Rate 102 H 78 Respiratory 18 18 Rate Blood Pressure 124/72 140/85 O2 Sat by Pulse 98 98 Oximetry Medical Decision Making - Medical Decision Making Was pt. sent in by a medical professional or institution (, PA, HEAD WRESTLING COACH, urgent care, hospital, or prison...) When possible be specific @ -No Did you speak to anyone other than the patient for history (EMS, parent, family, police, friend...)? What history was obtained from this source @ -No Did you review nursing and triage notes (agree or disagree)? Why? @ -I reviewed and agree with nursing and triage notes Were old charts reviewed (outside hosp., previous admission, EMS record, old EKG, old radiological studies, urgent care reports/EKG's, prison records)? Report findings @ -Old charts reviewed Differential Diagnosis (chest pain, altered mental status, abdominal pain women, abdominal pain men, vaginal bleeding, weakness, fever, dyspnea, syncope, headache, dizziness, GI bleed, back pain, seizure, CVA, palpatations, mental health, musculoskeletal)? @ -Bronchitis, ACS, electrolyte abnormality, reevaluation. This list is not all inclusive. EKG interpreted by me (3pts min.). @ -As above X-rays interpreted by me (1pt min.). @ -None done CT interpreted by me (1pt min.). @ -None done U/S interpreted by me (1pt. min.). @ -None done What testing was considered but not performed or refused? (CT, X-rays, U/S, labs)? Why? @ -I did offer chest x-ray however patient declined at this time. Has no symptoms. What meds were considered but not given or refused? Why? @ -None Did you discuss the management of the patient with other professionals (professionals i.e. , PA, HEAD WRESTLING COACH, lab, RT, psych nurse, social security benefits interviewer, qa internship, teacher, air antisubmarine officer, senior case manager)? Give summary @ -No Was smoking cessation discussed for >3mins.? @ -No Was critical care preformed (if so, how long)? @ -No Were there social determinants of health that impacted care today? How? (Homelessness, low income, unemployed, alcoholism, drug addiction, transportation, low edu. Level, literacy, decrease access to med. care, senior living, rehab)? @ -No Was there de-escalation of care discussed even if they declined (Discuss DNR or withdrawal of care, Hospice)? DNR status @ -No What co-morbidities impacted this encounter? (DM, HTN, Smoking, COPD, CAD, Cancer, CVA, ARF, Chemo, Hep., AIDS, mental health diagnosis, sleep apnea, morbid obesity)? @ -None Was patient admitted / discharged? Hospital course, mention meds given and route, prescriptions, significant lab abnormalities, going to OR and other pertinent info. @ -Based on the patient's presentation and physical exam, I'm concerned for possible cardiac etiology. He mostly Presents for a work note. We will repeat laboratory studies at this time including a repeat troponin. He was in agreement with this plan. Repeat EKG will also be obtained. His no symptoms. Vital signs are within acceptable limits. EKG showed no signs of acute ischemia.Patient's labs show a troponin that is stable when compared with earlier in the week in the setting of no new symptoms. Remainder the labs within acceptable limits. EKG shows no signs of ischemia. I updated the patient. He remains asymptomatic. He would like home which I believe is reasonable. He'll be given a work note. Patient discharged home at this time with strict return precautions. I instructed the patient to follow up with their PCP in the next 1-3 days. I explained that the patient should return to the emergency department if they experience any worsening symptoms. Strict return precautions were discussed with the patient. The patient expressed understanding of these instructions. I answered all questions that the patient had. The patient was discharged home in good condition with their prescriptions and follow up information. Undiagnosed new problem with uncertain prognosis? @ -No Drug Therapy requiring intensive monitoring for toxicity (Heparin, Nitro, Insulin, Cardizem)? @ -No Were any procedures done? @ -No Diagnosis/symptom? @ -Routine lab draw Acute, or Chronic, or Acute on Chronic? @ -Acute Uncomplicated (without systemic symptoms) or Complicated (systemic symptoms)? @ -Uncomplicated Side effects of treatment? @ -none Exacerbation, Progression, or Severe Exacerbation] @ -no Poses a threat to life or bodily function? @ -no - Lab Data Result diagrams: 01/26/23 09:13 01/26/23 09:13 Lab Results 01/26/23 01/26/23 01/26/23 Range/Units 09:13 09:13 09:13 WBC 10.7 H (3.8-10.6) k/uL RBC 4.66 (4.30-5.90) m/uL Hgb 16.1 (13.0-17.5) gm/dL Hct 49.0 (39.0-53.0) % MCV 105.2 H (80.0-100.0) fL MCH 34.5 (25.0-35.0) pg MCHC 32.8 (31.0-37.0) g/dL RDW 13.0 (11.5-15.5) % Plt Count 270 (150-450) k/uL MPV 7.4 Neutrophils % 74 % Lymphocytes % 17 % Monocytes % 4 % Eosinophils % 3 % Basophils % 1 % Neutrophils # 8.0 H (1.3-7.7) k/uL Lymphocytes # 1.8 (1.0-4.8) k/uL Monocytes # 0.5 (0-1.0) k/uL Eosinophils # 0.3 (0-0.7) k/uL Basophils # 0.1 (0-0.2) k/uL Macrocytosis Slight Sodium 137 (137-145) mmol/L Potassium 4.2 (3.5-5.1) mmol/L Chloride 100 (98-107) mmol/L Carbon Dioxide 26 (22-30) mmol/L Anion Gap 11 mmol/L BUN 19 (9-20) mg/dL Creatinine 0.99 (0.66-1.25) mg/dL Est GFR (CKD-EPI)AfAm >90 (>60 ml/min/1.73 sqM) Est GFR (CKD-EPI)NonAf >90 (>60 ml/min/1.73 sqM) Glucose 127 H (74-99) mg/dL Calcium 9.0 (8.4-10.2) mg/dL Troponin I 0.022 (0.000-0.034) ng/mL - EKG Data -: EKG Interpreted by Me EKG Comments: 12-lead Electrocardiogram Interpretation Note EKG was reviewed and interpreted by myself. 12-lead ECG performed at 0856 is interpreted by me as revealing sinus tachycardia at a rate of 100 beats per minute. [place] is normal. MO interval is 141 ms, QRS duration 99 ms, QTc is 391 ms.. There were no ST or T wave abnormalities to suggest myocardial ischemia or injury. R wave progression across the precordium was satisfactory. By my interpretation this EKG is non-diagnostic for acute ischemia. Disposition Clinical Impression: Routine lab draw Disposition: HOME SELF-CARE Condition: Good Is patient prescribed a controlled substance at d/c from ED?: No Referrals: Malcom Fritz MD [Primary Care Provider] - 1-2 days Time of Disposition: 10:15
[2023-01-26 09:47] LABS: African American GFR (CKD) >90 (>60 ml/min/1.73 sqM); Anion Gap 11 mmol/L; Blood Urea Nitrogen 19 mg/dL (9-20); Carbon Dioxide 26 mmol/L (22-30); Chloride 100 mmol/L (98-107); Glucose 127 mg/dL (74-99); Non-African American GFR(CKD) >90 (>60 ml/min/1.73 sqM); Potassium 4.2 mmol/L (3.5-5.1); Sodium 137 mmol/L (137-145)
[2023-01-26 10:34] VITALS: BP 140/85; PULSE 78; TEMP 97.8
== END 2023-01-26 10:28 | disposition home or self-care (01) ==
LOC: EC 08:36
DX: Z00.00 Encounter for general adult medical examination without abnormal findings (principal); F17.200 Nicotine dependence, unspecified, uncomplicated; F12.90 Cannabis use, unspecified, uncomplicated
CPT/HCPCS: 36415; 80048; 84484; 85025; 93005; 99284

== ENCOUNTER 2023-08-28 10:31 | Emergency (ER) | payer OTHER ==
--- NOTE | 2023-08-28 11:28 | ED ---
SOB HPI - General Chief Complaint: Shortness of Breath Stated Complaint: SOB Time Seen by Provider: 08/28/23 11:27 Source: patient, RN notes reviewed Mode of arrival: ambulatory Limitations: no limitations - History of Present Illness Initial Comments: This is a 48-year-old male who presents to the emergency department for shortness of breath beginning last night. States that he was here at the end of last year for chest pain and shortness of breath and was told that his cardiac enzymes were mildly elevated. Denies any chest pain currently. He told his boss at work about his symptoms, and was told to come to the emergency department for evaluation before returning to work. Additionally, he has been dealing with what he believes to be acid reflux over the last 2 years and inquired about medication he can take for this. MD Complaint: shortness of breath - Related Data Home Medications Medication Instructions Recorded Confirmed ALPRAZolam [Xanax] 1 mg PO Q8H PRN 02/29/16 02/22/19 D-Methorphan/PE/Acetaminophen 2 cap PO Q12HR PRN 02/22/19 02/22/19 [Vicks Dayquil Liquicaps] HYDROcodone/APAP 5-325MG [Mobile 1 tab PO TID PRN 02/22/19 02/22/19 5-325] Previous Rx's Medication Instructions Recorded Albuterol Inhaler [Ventolin Hfa 2 puff INHALATION Q6HR PRN #1 02/22/19 Inhaler] inhaler Magnesium 200 mg PO DAILY #10 tablet 02/22/19 Oseltamivir [Tamiflu] 75 mg PO Q12HR #10 cap 02/22/19 methylPREDNISolone [Medrol Dose 4 mg PO DIRECTED #1 pack 02/22/19 Pack] Albuterol Sulfate [Albuterol 1 puff PO Q4-6H PRN #8.5 gm 01/24/23 Sulfate Hfa] Albuterol Sulfate [Albuterol 1 - 2 puff PO Q4-6H PRN #8.5 gm 08/28/23 Sulfate Hfa] Pantoprazole Sodium 40 mg PO DAILY #20 tab 08/28/23 Allergies Allergy/AdvReac Type Severity Reaction Status Date / Time No Known Allergies Allergy Verified 08/28/23 11:01 Review of Systems ROS Statement: Those systems with pertinent positive or pertinent negative responses have been documented in the HPI. ROS Other: All systems not noted in ROS Statement are negative. Past Medical History Past Medical History: No Reported History History of Any Multi-Drug Resistant Organisms: None Reported Past Surgical History: Hernia Repair Past Psychological History: No Psychological Hx Reported Smoking Status: Current every day smoker Past Alcohol Use History: None Reported Past Drug Use History: Marijuana General Exam Limitations: no limitations General appearance: alert, in no apparent distress Head exam: Present: atraumatic, normocephalic, normal inspection Respiratory exam: Present: normal lung sounds bilaterally. Absent: respiratory distress, wheezes, rales, rhonchi, stridor Cardiovascular Exam: Present: regular rate, normal rhythm, normal heart sounds. Absent: systolic murmur, diastolic murmur, rubs, gallop, clicks Neurological exam: Present: alert, oriented X3, CN II-XII intact Psychiatric exam: Present: normal affect, normal mood Skin exam: Present: warm, dry, intact, normal color. Absent: rash Course Vital Signs 08/28/23 08/28/23 08/28/23 10:59 14:34 15:43 Temperature 98.2 F 98.1 F Pulse Rate 82 86 85 Respiratory 16 18 16 Rate Blood Pressure 167/73 142/101 144/81 O2 Sat by Pulse 98 99 Oximetry Medical Decision Making - Medical Decision Making This is a 48 year old male who presents to the emergency department for shortness of breath. Was pt. sent in by a medical professional or institution? @ -No Did you speak to anyone other than the patient for history? @ -No Did you review nursing and triage notes? @ -Yes, and I agree, it is accurate with regards to the patient's symptoms. Were old charts reviewed? @ -No Differential Diagnosis? @ -Differential Dyspnea: Coronary syndrome, arrhythmia, tamponade, asthma, COPD, pulmonary embolism, pneumonia, pneumothorax, pulmonary effusion, anaphylaxis, diabetic ketoacidosis, flailed chest, pulmonary contusion, diaphragmatic rupture, anemia, n euromuscular, this is not meant to be an all-inclusive list. EKG interpreted by me (3pts min.)? @ -EKG interpreted by me demonstrating the following: Sinus rhythm. Ventricu lar rate 73 bpm, VA interval 155 ms, QRS duration 92 ms, QTc 362 ms. X-rays interpreted by me (1pt min.)? @ -Chest x-ray obtained, my interpretation identifies no localized c onsolidations or infiltrates. CT interpreted by me (1pt min.)? @ -Not obtained U/S interpreted by me (1pt. min.)? @ -Not obtained What testing was considered but not performed? (CT, X-rays, U/S, labs)? Why? @ -None What meds were considered but not given? Why? @ -None Did you discuss the management of the patient with other professionals? @ -No Did you reconcile home meds? @ -No Was smoking cessation discussed for >3mins.? @ -I discussed smoking cessation for greater than 3 minutes. The risk of smoking were discussed with the patient including but not limited to risks of cancer, stroke, coronary artery disease and COPD. Also discussed with patient were multiple methods of quitting smoking. Lastly we discussed the financial cost of smoking. Was critical care preformed (if so, how long)? @ -No Were there social determinants of health that impacted care today? How? ( Homelessness, low income, unemployed, alcoholism, drug addiction, transportation, low edu. Level, literacy, decrease access to med. care, alf, rehab)? @ -No Was there de-escalation of care discussed even if they declined? (Discuss DNR or withdrawal of care, Hospice)? @ -No What co-morbidities impacted this encounter? (DM, HTN, Smoking, COPD, CAD, Cancer, CVA, Hep., AIDS, mental health diagnosis, sleep apnea, morbid obesity)? @ -Smoking Was patient admitted / discharged? @ -Discharged. Lab work unremarkable including a negative troponin and negative D-dimer. Chest x-ray reveals hyperinflation which may relate to depth of inspiration or underlying emphysema. Patient is a smoker and emphysema is a possibility. Patient continued to deny any chest pain while in the emergency department. He inquired about treatment for heartburn which he has been dealing with for the last 2 years. A prescription for pantoprazole was provided. Advised that this can take a couple of weeks to become effective. He was also given a prescription for an albuterol inhaler for any additional shortness of breath. Advised follow-up with his PCP for reevaluation. Undiagnosed new problem with uncertain prognosis? @ -None Drug Therapy requiring intensive monitoring for toxicity (Heparin, Nitro, Insulin, Cardizem)? @ -None Were any procedures done? @ -None Diagnosis/symptom? @ -Shortness of breath Acute, or Chronic, or Acute on Chronic? @ -Acute Uncomplicated (without systemic symptoms) or Complicated (systemic symptoms)? @ -Uncomplicated Side effects of treatment? @ -None Exacerbation, Progression, or Severe Exacerbation] @ -Not applicable Poses a threat to life or bodily function? @ -No Return precautions reviewed in depth, the patient is instructed to return to the emergency department with any new, worsening, or concerning symptoms. Patient verbalized understanding. This case was discussed in detail with the attending ED physician, Dr. Cho. Presentation, findings, and treatment plan discussed in detail as well. - Lab Data Result diagrams: 08/28/23 11:26 08/28/23 11:26 Lab Results 08/28/23 08/28/23 08/28/23 Range/Units 11:26 11:26 11:26 WBC 9.4 (3.8-10.6) k/uL RBC 4.67 (4.30-5.90) m/uL Hgb 16.1 (13.0-17.5) gm/dL Hct 50.9 (39.0-53.0) % MCV 108.9 H (80.0-100.0) fL MCH 34.4 (25.0-35.0) pg MCHC 31.6 (31.0-37.0) g/dL RDW 12.0 (11.5-15.5) % Plt Count 355 (150-450) k/uL MPV 7.7 Neutrophils % 75 % Lymphocytes % 16 % Monocytes % 5 % Eosinophils % 3 % Basophils % 1 % Neutrophils # 7.0 (1.3-7.7) k/uL Lymphocytes # 1.5 (1.0-4.8) k/uL Monocytes # 0.4 (0-1.0) k/uL Eosinophils # 0.3 (0-0.7) k/uL Basophils # 0.1 (0-0.2) k/uL Macrocytosis Moderate PT 10.5 (10.0-12.5) sec INR 1.0 (<1.2) APTT 24.5 (22.0-30.0) sec D-Dimer 0.30 (<0.60) mg/L FEU Sodium 135 L (137-145) mmol/L Potassium 4.5 (3.5-5.1) mmol/L Chloride 101 (98-107) mmol/L Carbon Dioxide 30 (22-30) mmol/L Anion Gap 4 mmol/L BUN 13 (9-20) mg/dL Creatinine 0.95 (0.66-1.25) mg/dL Est GFR (CKD-EPI)AfAm >90 (>60 ml/min/1.73 sqM) Est GFR (CKD-EPI)NonAf >90 (>60 ml/min/1.73 sqM) Glucose 132 H (74-99) mg/dL Plasma Lactic Acid Yared (0.7-2.0) mmol/L Calcium 9.7 (8.4-10.2) mg/dL Total Bilirubin 0.8 (0.2-1.3) mg/dL AST 29 (17-59) U/L ALT 36 (4-49) U/L Alkaline Phosphatase 39 (38-126) U/L Troponin I (0.000-0.034) ng/mL Total Protein 6.4 (6.3-8.2) g/dL Albumin 4.3 (3.5-5.0) g/dL 08/28/23 08/28/23 Range/Units 11:26 11:31 WBC (3.8-10.6) k/uL RBC (4.30-5.90) m/uL Hgb (13.0-17.5) gm/dL Hct (39.0-53.0) % MCV (80.0-100.0) fL MCH (25.0-35.0) pg MCHC (31.0-37.0) g/dL RDW (11.5-15.5) % Plt Count (150-450) k/uL MPV Neutrophils % % Lymphocytes % % Monocytes % % Eosinophils % % Basophils % % Neutrophils # (1.3-7.7) k/uL Lymphocytes # (1.0-4.8) k/uL Monocytes # (0-1.0) k/uL Eosinophils # (0-0.7) k/uL Basophils # (0-0.2) k/uL Macrocytosis PT (10.0-12.5) sec INR (<1.2) APTT (22.0-30.0) sec D-Dimer (<0.60) mg/L FEU Sodium (137-145) mmol/L Potassium (3.5-5.1) mmol/L Chloride (98-107) mmol/L Carbon Dioxide (22-30) mmol/L Anion Gap mmol/L BUN (9-20) mg/dL Creatinine (0.66-1.25) mg/dL Est GFR (CKD-EPI)AfAm (>60 ml/min/1.73 sqM) Est GFR (CKD-EPI)NonAf (>60 ml/min/1.73 sqM) Glucose (74-99) mg/dL Plasma Lactic Acid Yared 1.4 (0.7-2.0) mmol/L Calcium (8.4-10.2) mg/dL Total Bilirubin (0.2-1.3) mg/dL AST (17-59) U/L ALT (4-49) U/L Alkaline Phosphatase (38-126) U/L Troponin I <0.012 (0.000-0.034) ng/mL Total Protein (6.3-8.2) g/dL Albumin (3.5-5.0) g/dL - Radiology Data Radiology results: report reviewed, image reviewed Disposition Clinical Impression: Shortness of breath, Acid reflux, Nicotine dependence Disposition: HOME SELF-CARE Instructions (If sedation given, give patient instructions): GERD (Gastroesophageal Reflux Disease) (ED), Dyspnea (ED) Additional Instructions: Return to the emergency department with any new, worsening, or concerning symptoms. Start taking the pantoprazole daily to see if this helps with the possible acid reflux sensation. Try to take this 30 to 60 minutes before eating or taking other medication for the most improvement. This may take a week or so before you start to notice substantial relief. You could also try taking Tums in the meantime. Use the albuterol inhaler every as 1 to 2 puffs every 4-6 hours as needed for shortness of breath. Follow up with your primary care provider in 1-2 days. Prescriptions: Albuterol Sulfate [Albuterol Sulfate Hfa] 1 - 2 puff PO Q4-6H PRN #8.5 gm PRN Reason: Shortness Of Breath Pantoprazole Sodium 40 mg PO DAILY #20 tab Is patient prescribed a controlled substance at d/c from ED?: No Referrals: Malcom Fritz MD [Primary Care Provider] - 1-2 days Time of Disposition: 15:09
[2023-08-28 11:37] LABS: Basophils # (A) 0.1 k/uL (0-0.2); Basophils % (A) 1 %; Eosinophils # (A) 0.3 k/uL (0-0.7); Eosinophils % (A) 3 %; HCT 50.9 % (39.0-53.0); HGB 16.1 gm/dL (13.0-17.5); Lymphocytes # (A) 1.5 k/uL (1.0-4.8); Lymphocytes % (A) 16 %; MCH 34.4 pg (25.0-35.0); MCHC 31.6 g/dL (31.0-37.0); MCV 108.9 fL (80.0-100.0); Macrocytosis Moderate; Mean Platelet Volume 7.7; Monocytes # (A) 0.4 k/uL (0-1.0); Monocytes % (A) 5 %; Neutrophils % (A) 75 %; Platelet Count 355 k/uL (150-450); RBC 4.67 m/uL (4.30-5.90); WBC 9.4 k/uL (3.8-10.6)
[2023-08-28 11:53] LABS: ALT 36 U/L (4-49); AST 29 U/L (17-59); African American GFR (CKD) >90 (>60 ml/min/1.73 sqM); Albumin 4.3 g/dL (3.5-5.0); Alkaline Phosphatase 39 U/L (38-126); Anion Gap 4 mmol/L; Blood Urea Nitrogen 13 mg/dL (9-20); Calcium 9.7 mg/dL (8.4-10.2); Carbon Dioxide 30 mmol/L (22-30); Chloride 101 mmol/L (98-107); Glucose 132 mg/dL (74-99); Non-African American GFR(CKD) >90 (>60 ml/min/1.73 sqM); Potassium 4.5 mmol/L (3.5-5.1); Sodium 135 mmol/L (137-145); Total Bilirubin 0.8 mg/dL (0.2-1.3); Total Protein 6.4 g/dL (6.3-8.2)
[2023-08-28 11:55] LABS: Partial Thromboplastin Time 24.5 sec (22.0-30.0); Prothrombin Time 10.5 sec (10.0-12.5)
--- NOTE | 2023-08-28 12:31 | XR ---
EXAMINATION TYPE: XR chest 2V DATE OF EXAM: 08/28/2023 COMPARISON: 01/24/2023 HISTORY: 48-year-old male shortness of breath, difficulty breathing TECHNIQUE: PA and lateral views FINDINGS: The cardiomediastinal silhouette, aorta, and pulmonary vasculature are within normal limits. Hyperinf lation. Otherwise, lungs and pleural spaces are clear. IMPRESSION: Hyperinflation which may relate to depth of inspiration or underlying emphysema. Clinically correlate . Otherwise, no acute cardiopulmonary process.
[2023-08-28] MEDS: PANTOPRAZOLE 40 MG TABLET PO STA (15:28)
[2023-08-28 15:44] VITALS: BP 144/81; PULSE 85; RESP 16; TEMP 98.1
== END 2023-08-28 15:44 | disposition home or self-care (01) ==
LOC: EC 10:31
DX: R06.02 Shortness of breath (principal); K21.9 Gastro-esophageal reflux disease without esophagitis; F17.200 Nicotine dependence, unspecified, uncomplicated; F12.90 Cannabis use, unspecified, uncomplicated
CPT/HCPCS: 36415; 71046; 80053; 83605; 84484; 85025; 85379; 85610; 85730; 93005; 99285; 99406